=== PATIENT | female | born 1970 | race Caucasian/White ===

== ENCOUNTER 2017-01-27 10:58 | Emergency (ER) | payer SELFPAY ==
--- NOTE | 2017-01-27 11:29 | ER Document Report ---
ED Medical Screen (RME) - General Chief Complaint: Numbness Stated Complaint: RIGHT SIDE NUMBNESS Time Seen by Provider: 01/27/17 11:26 Notes: Patient states last night when she went to bed she had a headache. She states she woke up this morning on the right side of her body feels weak. She states that she is having some weakness when she walks as well. She denies any trouble speaking or swallowing. She states that she woke up with the symptoms. Last known well time is approximately 12:30 AM. TRAVEL OUTSIDE OF THE [place] IN LAST 30 DAYS: No - Related Data Allergies/Adverse Reactions: No Known Allergies Allergy (Verified 01/27/17 11:20) Past Medical History Renal/ Medical History: Denies: Hx Peritoneal Dialysis Physical Exam - Vital signs Vitals: Temp Pulse Resp BP Pulse Ox 98.0 F 78 20 132/85 H 99 01/27/17 11:16 01/27/17 11:16 01/27/17 11:16 01/27/17 11:16 01/27/17 11:16 Course - Vital Signs Vital signs: Temp Pulse Resp BP Pulse Ox 98.0 F 78 20 132/85 H 99 01/27/17 11:16 01/27/17 11:16 01/27/17 11:16 01/27/17 11:16 01/27/17 11:16
[2017-01-27 12:50] LABS: ABSOLUTE EOSINOPHILS # (AUTO) 0.1 10^3/uL (0.0-0.6); ABSOLUTE LYMPHOCYTES (AUTO) 1.6 10^3/uL (0.5-4.7); ABSOLUTE MONOCYTES (AUTO) 0.4 10^3/uL (0.1-1.4); ABSOLUTE NEUT (AUTO) 6.6 10^3/uL (1.7-8.2); BASOPHILS % (AUTO) 0.3 % (0-2); EOSINOPHILS % (AUTO) 1.6 % (0-6); HEMATOCRIT 39.9 % (36.0-47.0); HEMOGLOBIN 13.5 g/dL (12.0-15.5); HGB HCT DIFFERENCE 0.6; MEAN CORPUSCULAR HEMOGLOBIN 33.2 pg (27.0-33.4); MEAN CORPUSCULAR HGB CONC 33.9 g/dL (32.0-36.0); MEAN CORPUSCULAR VOLUME 98 fl (80-97); MONOCYTES % (AUTO) 4.3 % (3-13); RED BLOOD COUNT 4.08 10^6/uL (3.72-5.28); RED CELL DISTRIBUTION WIDTH 13.5 % (11.5-14.0); SEGMENTED NEUTROPHILS % (AUTO) 75.8 % (42-78); WHITE BLOOD COUNT 8.7 10^3/uL (4.0-10.5)
[2017-01-27 12:57] LABS: APPEARANCE,URINE SLIGHTLY-CLOUDY; BILIRUBIN,URINE NEGATIVE (NEGATIVE); GLUCOSE, URINE NEGATIVE (NEGATIVE); KETONES,URINE NEGATIVE (NEGATIVE); LEUKOCYTE ESTERASE,URINE MODERATE (NEGATIVE); NITRITE,URINE POSITIVE (NEGATIVE); PROTEIN,URINE NEGATIVE (NEGATIVE); UROBILINOGEN,URINE NEGATIVE mg/dL (<2.0)
[2017-01-27 13:23] LABS: ALANINE AMINOTRANSFERASE 22 U/L (9-52); ALBUMIN 4.4 g/dL (3.5-5.0); ALKALINE PHOSPHATASE 47 U/L (38-126); ANION GAP 11 (5-19); ASPARTATE AMINO TRANSFERASE 22 U/L (14-36); BILIRUBIN,DIRECT 0.4 mg/dL (0.0-0.4); BILIRUBIN,TOTAL 0.8 mg/dL (0.2-1.3); BLOOD UREA NITROGEN 7 mg/dL (7-20); CALCIUM 9.6 mg/dL (8.4-10.2); CARBON DIOXIDE 23 mmol/L (22-30); CHLORIDE 106 mmol/L (98-107); CREATININE RESULT 0.62 mg/dL (0.52-1.25); GLUCOSE 90 mg/dL (75-110); POTASSIUM 4.7 mmol/L (3.6-5.0); SODIUM 140.1 mmol/L (137-145); TOTAL PROTEIN 7.3 g/dL (6.3-8.2)
--- NOTE | 2017-01-27 13:28 | RADIOLOGY REPORT (SQ) ---
EXAM DESCRIPTION: CT HEAD WITHOUT COMPLETED DATE/TIME: 01/27/2017 12:54 pm REASON FOR STUDY: right side of body numb COMPARISON: None. TECHNIQUE: Axial images acquired through the brain without intravenous contrast. Images reviewed wi th bone, brain and subdural windows. Images stored on PACS. All CT scanners at this facility use dose modulation, iterative reconstruction, and/or weight based d osing when appropriate to reduce radiation dose to as low as reasonably achievable (ALARA). [facility]: Dose Right [facility]: CareDose [facility]: Dose Right [facility]: Teradose 4D [facility]: [employer] Technologies RADIATION DOSE: Up-to-date CT equipment and radiation dose reduction techniques were employed. CTDIv ol: 64.6 mGy. DLP: 1163 mGy-cm. mGy. LIMITATIONS: None. FINDINGS: VENTRICLES: Normal size and contour. CEREBRUM: No masses. No hemorrhage. No midline shift. No evidence for acute infarction. Normal gra y/white matter differentiation. No areas of low density in the white matter. CEREBELLUM: No masses. No hemorrhage. No alteration of density. No evidence for acute infarction. EXTRAAXIAL SPACES: No fluid collections. No masses. ORBITS AND GLOBE: No intra- or extraconal masses. Normal contour of globe without masses. CALVARIUM: No fracture. PARANASAL SINUSES: No fluid or mucosal thickening. SOFT TISSUES: No mass or hematoma. OTHER: No other significant finding. IMPRESSION: NORMAL BRAIN CT WITHOUT CONTRAST. COMMENT: Quality ID # [id number]: Final reports with documentation of one or more dose reduction techniques (e.g., Automated exposure control, adjustment of the mA and/or kV according to patient size, use of iterative reconstruction technique) TECHNICAL DOCUMENTATION: JOB ID: [id number] [employer]- All Rights Reserved
[2017-01-27] MEDS ORDERED: ASPIRIN 325 MG TABLET PO ONE (13:47)
--- NOTE | 2017-01-27 13:51 | ER Document Report ---
ED Neuro Symptoms/Deficit - General Chief Complaint: Numbness Stated Complaint: RIGHT SIDE NUMBNESS Time Seen by Provider: 01/27/17 11:26 Information source: Patient Notes: Patient is a 46-year-old female with no real past medical history who presents today with initially the onset of a slow developing frontal headache last evening. She states 6 out of 10 maximum. She does not normally have headaches and denies any recent head trauma. She states she woke up this morning and felt numbness and weakness to her right face, arm, and leg. She states that the numbness and weakness are improving. She denies any headache at this time any neck pain, any blurry vision, any nausea, vomiting, chest pain, or fevers. TRAVEL OUTSIDE OF THE [place] IN LAST 30 DAYS: No - HPI Patient complains to provider of: Other - See above Onset: Other - See above Awoke with symptoms: Yes Duration: Better Quality of pain: No pain Severity: Mild Pain Level: Denies Was STROKE ALERT Called: No Baseline Cognitive: Alert, oriented X 3 Baseline Gait: Walks w/o assistance Pre-existing weakness: Face, Lower extremity, Upper extremity Alert To: Name/Voice Patient Orientation: Person, Place, Time, Events Associated symptoms: Other - See above Similar symptoms previously: No Recently seen / treated by doctor: No - Related Data Allergies/Adverse Reactions: No Known Allergies Allergy (Verified 01/27/17 11:20) Past Medical History - General Information source: Patient - Social History Smoking Status: Unknown if Ever Smoked Cigarette use (# per day): No Chew tobacco use (# tins/day): No Smoking Education Provided: No Frequency of alcohol use: None Family History: Reviewed & Not Pertinent Renal/ Medical History: Denies: Hx Peritoneal Dialysis Review of Systems - Review of Systems Constitutional: denies: Fever EENT: denies: Eye discharge, Nose discharge Cardiovascular: denies: Chest pain, Palpitations Respiratory: denies: Short of breath Gastrointestinal: denies: Vomiting Genitourinary: denies: Dysuria Musculoskeletal: denies: Leg swelling Skin: Other - no hives. denies: Rash Neurological/Psychological: Other - no slurred speech -: Yes All other systems reviewed and negative Physical Exam - Vital signs Vitals: Temp Pulse Resp BP Pulse Ox 98.0 F 78 20 132/85 H 99 01/27/17 11:16 01/27/17 11:16 01/27/17 11:16 01/27/17 11:16 01/27/17 11:16 Notes: Reviewed vital signs and nursing note as charted by RN. CONSTITUTIONAL: Alert and oriented and responds appropriately to questions. Well -appearing; well-nourished HEAD: Normocephalic; atraumatic EYES: PERRL; Conjunctivae clear, sclerae non-icteric ENT: Normal nose; no rhinorrhea; moist mucous membranes; pharynx without lesions noted NECK: Supple without meningismus; no carotid bruits CARD: Regular rate and rhythm; no murmurs, no clicks, no rubs, no gallops; symmetric distal pulses RESP: Normal chest excursion without splinting or tachypnea; breath sounds clear and equal bilaterally ABD/GI: Normal bowel sounds; non-distended; soft, non-tender BACK: The back appears normal and is non-tender to palpation, there is no CVA tenderness EXT: Normal ROM in all joints; non-tender to palpation; no cyanosis, no effusions, no edema SKIN: Normal color for age and race; warm; dry; good turgor; capillary refill < 2 seconds; no acute lesions noted NEURO: CN II through XII are intact. Patient has 4/5 strength to right low voltage electrician and right plantar flexion. Patient does have some mild sensory deficit to the right dorsal aspect of the hand and the right lateral leg and foot PSYCH: The patient's mood and manner are appropriate. Grooming and personal hygiene are appropriate. Course - Re-evaluation Re-evalutation: Given the above history and physical examination the patient had a CT scan of the head as well as basic laboratory values performed. 01/27/17 13:49 CT scan of the head shows no acute abnormalities. Patient still has no headache. NIH score is a 1. Given that the patient awoke with symptoms, I do not believe that the patient is a TPA candidate. Patient is very low risk factors for stroke. Patient did have a mild headache last evening. Patient currently has no headache, neck pain, or stiffness. Patient has no family history of cerebral aneurysms, intracranial bleed, connective tissue disorders. I do believe subarachnoid hemorrhage to be unlikely. Given the patient's symptomatology, I have provided aspirin we will order an MRI of the brain. I have also added a troponin and EKG. 01/27/17 13:53 EKG shows a heart of 66, normal sinus rhythm, normal axis, no obvious ST elevation or depression. 01/27/17 15:[address] is recorded. No change in exam. I have had a discussion with the patient about my inability to rule out subarachnoid hemorrhage without lumbar puncture. I explained the risks and benefits. I have explained this in the presence of her significant other. She is to follow this at this time. Patient will be admitted for further evaluation. - Vital Signs Vital signs: Temp Pulse Resp BP Pulse Ox 98.0 F 78 20 132/85 H 99 01/27/17 11:16 01/27/17 11:16 01/27/17 11:16 01/27/17 11:16 01/27/17 11:16 - Laboratory Result Diagrams: 01/27/17 12:08 01/27/17 12:08 Laboratory results interpreted by me: 01/27/17 01/27/17 12:08 12:08 MCV 98 H Urine Blood SMALL H Urine Nitrite POSITIVE H Ur Leukocyte Esterase MODERATE H Discharge - Discharge Clinical Impression: Right sided weakness, Numbness on right side Headache Qualifiers: Headache type: unspecified Headache chronicity pattern: unspecified pattern Intractability: not intractable Qualified Code(s): R51 - Headache Condition: Good Disposition: HOME, SELF-CARE
[2017-01-27] MEDS ORDERED: CEFTRIAXONE RTU 1 GM/D5W 50 ML IV ONE (14:04)
--- NOTE | 2017-01-27 15:58 | RADIOLOGY REPORT (SQ) ---
EXAM DESCRIPTION: MRI HEAD WITHOUT COMPLETED DATE/TIME: 01/27/2017 3:42 pm REASON FOR STUDY: 8, headache yesterday with right sided numb today COMPARISON: None. TECHNIQUE: Multiplanar imaging includes non-contrasted T1, T2, FLAIR, and diffusion with ADC map seq uences. Images stored on PACS. LIMITATIONS: None. FINDINGS: ANATOMY: No anomalies. Normal vascular flow voids. Pituitary fossa normal. CSF SPACES: Normal in size and contour. No hemorrhage. CEREBRUM: Sulci and gyri normal in size and contour. Normal white matter signal on FLAIR imaging. No evidence of hemorrhage, mass, or extraaxial fluid collection. POSTERIOR FOSSA: No signal alteration. No hemorrhage. No edema, masses or mass effect. Internal albert tory canals, cerebello-pontine angles, mastoids normal. DIFFUSION IMAGING: Negative for acute or sub-acute infarction. ORBITS: No masses. Globes normal. PARANASAL SINUSES: No fluid levels. Mucosa normal. OTHER: No other significant finding. IMPRESSION: NORMAL MRI OF THE BRAIN WITHOUT INTRAVENOUS GADOLINIUM CONTRAST. EVIDENCE OF ACUTE STROKE: NO. TECHNICAL DOCUMENTATION: JOB ID: [id number] [employer]- All Rights Reserved
[2017-01-27 16:46] VITALS: BP 105/68
--- NOTE | 2017-01-27 17:19 | PDOC CONSULTATION ---
Consultation Consult Date: 01/27/17 Consult reason:: Possible CVA History of Present Illness Patient complains of: Right sided weakness History of Present Illness: RADAMES LANDERS is a 46 year old female who presented with right sided numbness and weakness. Last night she developed a headache and went to bed. She woke up this morning with weakness and numbness in both her right upper and lower extremity. She also had numbness on the right side of her face. Past Medical History Medical History: None Cardiac Medical History: Reports: None Pulmonary Medical History: Reports: None EENT Medical History: Reports: None Neurological Medical History: Reports: None Endocrine Medical History: Reports: None Renal/ Medical History: Reports: None Malignancy Medical History: Reports: None GI Medical History: Reports: None Musculoskeltal Medical History: Reports: None Skin Medical History: Reports: None Psychiatric Medical History: Reports: None Traumatic Medical History: Reports: None Hematology: Reports: None Infectious Medical History: Reports: None Past Surgical History Past Surgical History: Reports: Tubal Ligation Social History Information Source: Patient Lives with: Friend Smoking Status: Current Every Day Smoker Cigarettes Packs Per Day: 1 Number of Years Smokin Frequency of Alcohol Use: Social Amount of Alcoholic Beverages Per Day: 1-2 Last Alcohol Use: 01/26/17 Hx Recreational Drug Use: No Drugs: None Family History Family History: Reviewed & Not Pertinent, Hyperlipidemia, Hypertension, Malignancy, Other - atrial fibrillation Parental Family History Reviewed: Yes Children Family History Reviewed: Yes Sibling(s) Family History Reviewed.: Yes Medication/Allergy Home Medications: Aspirin [Aspirin EC] 81 mg PO DAILY #30 pkg 01/27/17 Ciprofloxacin HCl [Cipro 500 mg Tablet] 500 mg PO BID #10 tablet 01/27/17 Allergies/Adverse Reactions: No Known Allergies Allergy (Verified 01/27/17 11:20) Review of Systems Constitutional: PRESENT: other Eyes: ABSENT: visual disturbances Ears: ABSENT: hearing changes Nose, Mouth, and Throat: PRESENT: headache(s) Cardiovascular: ABSENT: chest pain, dyspnea on exertion, orthropnea, palpitations Respiratory: ABSENT: cough, dyspnea, hemoptysis Gastrointestinal: ABSENT: abdominal pain, bloating, constipation, diarrhea, dysphagia, heartburn, hematemesis, nausea, vomiting Genitourinary: PRESENT: dysuria. ABSENT: difficulty urinating, hematuria, nocturia Musculoskeletal: ABSENT: back pain, joint swelling Integumentary: ABSENT: lesions, rash, wounds Neurological: PRESENT: numbness - Patient had numbness on right face and weakness and numbness in right upper and lower extremity, weakness Psychiatric: PRESENT: anxiety Endocrine: ABSENT: cold intolerance, heat intolerance, menstrual abnormalities Hematologic/Lymphatic: ABSENT: easy bleeding, easy bruising Physical Exam Vital Signs: Temp Pulse Resp BP Pulse Ox 98.0 F 81 13 105/68 98 01/27/17 11:16 01/27/17 13:15 01/27/17 16:42 01/27/17 15:01 01/27/17 15:01 Intake & Output 01/26/17 01/27/17 01/28/17 06:59 06:59 06:59 Weight 59.4 kg General appearance: PRESENT: no acute distress, well-developed, well-nourished, other - She is somewhat anxious and tearful as she wants to go home Head exam: PRESENT: atraumatic, normocephalic Eye exam: PRESENT: conjunctiva pink, EOMI, PERRLA. ABSENT: scleral icterus Ear exam: PRESENT: normal external ear exam Mouth exam: PRESENT: moist, tongue midline Neck exam: ABSENT: carotid bruit, JVD, lymphadenopathy, thyromegaly Respiratory exam: PRESENT: clear to auscultation radha. ABSENT: rales, rhonchi, wheezes Cardiovascular exam: PRESENT: RRR. ABSENT: diastolic murmur, rubs, systolic murmur Pulses: PRESENT: normal dorsalis pedis pul Vascular exam: PRESENT: normal capillary refill GI/Abdominal exam: PRESENT: normal bowel sounds, soft. ABSENT: distended, guarding, mass, organolmegaly, rebound, tenderness Rectal exam: PRESENT: deferred Extremities exam: PRESENT: full ROM. ABSENT: calf tenderness, clubbing, pedal edema Musculoskeletal exam: PRESENT: ambulatory, full ROM Neurological exam: PRESENT: alert, altered, awake, oriented to person, oriented to place, oriented to time, oriented to situation, reflexes normal, CN II-XII grossly intact, motor sensory deficit - She has no weakness on the right upper or lower extremity Psychiatric exam: PRESENT: agitated, anxious, other - Tearful Skin exam: PRESENT: dry, intact, warm. ABSENT: cyanosis, rash Results Laboratory Results: 01/27/17 12:08 01/27/17 12:08 01/27/17 01/27/17 01/27/17 12:08 12:08 12:08 WBC 8.7 RBC 4.08 Hgb 13.5 Hct 39.9 MCV 98 H MCH 33.2 MCHC 33.9 RDW 13.5 Plt Count 250 Seg Neutrophils % 75.8 Lymphocytes % 18.0 Monocytes % 4.3 Eosinophils % 1.6 Basophils % 0.3 Absolute Neutrophils 6.6 Absolute Lymphocytes 1.6 Absolute Monocytes 0.4 Absolute Eosinophils 0.1 Absolute Basophils 0.0 Sodium 140.1 Potassium 4.7 Chloride 106 Carbon Dioxide 23 Anion Gap 11 BUN 7 Creatinine 0.62 Est GFR ( Amer) > 60 Est GFR (Non-Af Amer) > 60 Glucose 90 Calcium 9.6 Total Bilirubin 0.8 AST 22 ALT 22 Alkaline Phosphatase 47 Total Protein 7.3 Albumin 4.4 Urine Color YELLOW Urine Appearance SLIGHTLY-CLOUDY Urine pH 5.0 Ur Specific [place] 1.020 Urine Protein NEGATIVE Urine Glucose (UA) NEGATIVE Urine Ketones NEGATIVE Urine Blood SMALL H Urine Nitrite POSITIVE H Ur Leukocyte Esterase MODERATE H Urine WBC (Auto) 25 Urine RBC (Auto) 2 01/27/17 14:35 Troponin I < 0.012 Impressions: Head CT 01/27/17 11:27 IMPRESSION: NORMAL BRAIN CT WITHOUT CONTRAST. Head MRI 01/27/17 13:36 IMPRESSION: NORMAL MRI OF THE BRAIN WITHOUT INTRAVENOUS GADOLINIUM CONTRAST. EVIDENCE OF ACUTE STROKE: NO. Assessment & Plan - Diagnosis (1) TIA (transient ischemic attack) Plan: Her symptoms have totally resolved. CT and MRI of the brain is normal. She will start an 81 mg ASA and [facility] (2) Right hemiparesis Plan: Resolved. Likely secondary to TIA (3) UTI (urinary tract infection) Plan: She will be sent home to complete a course of Cipro (4) Tobacco abuse Plan: She has been counseled to quit smoking - Time Time Spent: 30 to 50 Minutes Smoking Cessation Education: over 10 minutes Medications reviewed and adjusted accordingly: Yes Anticipated discharge: Home Disposition: I am discharging the patient from the ED. [facility]. Her imaging reveals no acute CVA and her lab work is unremarkable. Her symptoms are totally resolved at this point. She was counseled to exercise and find ways to decrease stress. She should stop smoking.
--- NOTE | 2017-01-27 20:13 | EKG REPORT ---
SEVERITY:- NORMAL ECG - SINUS RHYTHM : Confirmed by: Tomas Upton 27-Jan-2017 20:12:11
== END 2017-01-27 18:24 | disposition home or self-care (01) ==
LOC: ER 10:58
DX: R20.0 Anesthesia of skin (principal); R51 Headache; R53.1 Weakness
CPT/HCPCS: 93005; 99284; 96365; 36415; 85025; 81025; 80053; 81001; 84484; 70551; 70450; 93010; J0696